=== PATIENT | female | born 1985 | race Caucasian/White ===

== ENCOUNTER → 2016-09-12 | Outpatient (CLI) | payer OTHER ==
[~2016-09-12] VITALS: Ht 162.6 cm; Wt 68.1 kg
[~2016-09-12] MED LIST: FEOSOL325 MG PO; PRENATAL VITAM1 EA10 PO
[2016-09-12 07:34] VITALS: BP 101/68
== END | disposition home or self-care (01) ==
LOC: IVINF 07:29
DX: Z31.82 Encounter for Rh incompatibility status (principal); Z3A.28 28 weeks gestation of pregnancy; Z67.41 Type O blood, Rh negative
CPT/HCPCS: 96372; J2790

== ENCOUNTER 2016-12-08 07:32 | Inpatient (IN) | payer OTHER ==
[~2016-12-08] VITALS: Ht 162.6 cm; Wt 78.6 kg
[2016-12-08] VITALS (19 sets, daily range): BP systolic 109–140; BP diastolic 62–84
[2016-12-08] MEDS ORDERED: ZYRTEC5 MG PO (08:55)
[2016-12-08 10:41] LABS: EOSINOPHIL (%) 0.8 % (0-5); EOSINOPHIL COUNT 0.1 K/uL (0-0.3); HEMATOCRIT 34.3 % (36.0-46.0); IMMATURE GRANULOCYTE (%) 0.7 % (0.0-0.7); IMMATURE GRANULOCYTE COUNT 0.1 K/uL; INSTRUMENT ABS NEUTROPHIL CT 5.4 K/uL; LYMPHOCYTE COUNT 1.3 K/uL (1.0-2.8); MCH 32.1 PG (29.0-34.0); MCHC 33.2 G/DL (30.0-36.0); MCV 96.6 FL (83-99); MEAN PLAT.VOLUME 9.9 uM^3 (9.5-12.4); MONOCYTE (%) 10.4 % (3-12); MONOCYTE COUNT 0.8 K/uL (0-0.8); NEUTROPHIL (%) 70.8 % (45-76); NEUTROPHIL COUNT 5.4 K/uL (1.8-6.4); PLATELET COUNT 202 K/uL (156-360); RBC DIS.WIDTH-CV 13.8 % (11.8-14.6); RBC DIS.WIDTH-SD 49.2 % (39-53); RED BLOOD COUNT 3.55 M/uL (3.80-5.20); WHITE BLOOD COUNT 7.6 K/uL (4.1-10.2)
[2016-12-09] VITALS (10 sets, daily range): BP systolic 103–144; BP diastolic 56–80
[2016-12-10 06:59] LABS: BASOPHIL COUNT 0.1 K/uL (0-0.1); EOSINOPHIL (%) 1.3 % (0-5); EOSINOPHIL COUNT 0.2 K/uL (0-0.3); HEMATOCRIT 30.8 % (36.0-46.0); IMMATURE GRANULOCYTE (%) 0.6 % (0.0-0.7); IMMATURE GRANULOCYTE COUNT 0.1 K/uL; LYMPHOCYTE COUNT 1.8 K/uL (1.0-2.8); MCH 31.4 PG (29.0-34.0); MCHC 32.5 G/DL (30.0-36.0); MCV 96.9 FL (83-99); MEAN PLAT.VOLUME 9.6 uM^3 (9.5-12.4); MONOCYTE (%) 7.5 % (3-12); NEUTROPHIL (%) 76.4 % (45-76); PLATELET COUNT 169 K/uL (156-360); RBC DIS.WIDTH-SD 49.1 % (39-53); RED BLOOD COUNT 3.18 M/uL (3.80-5.20); WHITE BLOOD COUNT 13.1 K/uL (4.1-10.2)
[2016-12-10 08:05] VITALS: BP 121/69
[2016-12-10] MEDS ORDERED: DOCUSATE SODIU100 MG PO (10:51)
[2016-12-10] MEDS ORDERED: IBUPROFEN800 MG PO (10:51)
== END 2016-12-10 13:30 | disposition home or self-care (01) | DRG 775 ==
LOC: LDRP-OP 07:32 → 2WEST 07:33 → LDRP-OP 19:16 → 2WEST 12-09 02:27 → LDRP-OP 12-31 08:57
PROVIDERS: Midwife
DX: O48.0 Post-term pregnancy (principal); O99.354 Diseases of the nervous system complicating childbirth; O36.0931 Maternal care for other rhesus isoimmunization, third trimester, fetus 1; F33.9 Major depressive disorder, recurrent, unspecified; Z37.0 Single live birth; Z3A.41 41 weeks gestation of pregnancy; Z80.42 Family history of malignant neoplasm of prostate; Z80.41 Family history of malignant neoplasm of ovary; O76 Abnormality in fetal heart rate and rhythm complicating labor and delivery; O69.1XX0 Labor and delivery complicated by cord around neck, with compression, not applicable or unspecified; O70.1 Second degree perineal laceration during delivery; F41.9 Anxiety disorder, unspecified; J45.909 Unspecified asthma, uncomplicated; G43.909 Migraine, unspecified, not intractable, without status migrainosus; O99.52 Diseases of the respiratory system complicating childbirth; O99.344 Other mental disorders complicating childbirth; Z23 Encounter for immunization
CPT/HCPCS: 85025; 90686; C1755; G0378; J7120